=== PATIENT | male | born 1990 | race Caucasian/White ===

== ENCOUNTER → 2017-01-03 | Outpatient (CLI) | payer BC | END | disposition home or self-care (01) | LOC: US 16:59 | DX: N50.82 Scrotal pain (principal) ==

== ENCOUNTER 2018-06-15 00:16 | Emergency (ER) | payer BC ==
[2018-06-15] MEDS ORDERED: OMNICEF300 MG PO (01:09)
== END 2018-06-15 01:40 | disposition home or self-care (01) ==
LOC: ED 00:16
DX: H72.92 Unspecified perforation of tympanic membrane, left ear (principal); F17.200 Nicotine dependence, unspecified, uncomplicated

== ENCOUNTER → 2020-04-15 | Outpatient (CLI) | payer BC ==
[~2020-04-15] MED LIST: OMNICEF300 MG PO
== END | disposition home or self-care (01) ==
LOC: COVID19 11:28
PROVIDERS: ATTEND Physician Assistant Medical
DX: Z20.828 Contact with and (suspected) exposure to other viral communicable diseases (principal)

== ENCOUNTER 2024-05-30 21:17 | Emergency (ER) | payer BC ==
[~2024-05-30] VITALS: Ht 180.3 cm; Wt 106.6 kg
[2024-05-30] MEDS ORDERED: Tdap Vaccine 0.5 ML SYR (Adult Vaccine) IM ONE (21:30)
[2024-05-30] MEDS ORDERED: DERMABOND 1 EA APPL T ONE (22:22)
== END 2024-05-30 22:26 | disposition home or self-care (01) ==
LOC: ED 21:17
DX: S61.211A Laceration without foreign body of left index finger without damage to nail, initial encounter (principal); W26.0XXA Contact with knife, initial encounter; Y93.89 Activity, other specified; Y92.009 Unspecified place in unspecified non-institutional (private) residence as the place of occurrence of the external cause; Y99.8 Other external cause status

== ENCOUNTER → 2024-12-27 | Outpatient (CLI) | payer BC | LOC: US 08:15 | PROVIDERS: ATTEND Family Medicine | DX: N40.0 Benign prostatic hyperplasia without lower urinary tract symptoms (principal); R10.9 Unspecified abdominal pain ==